=== PATIENT | male | born 1985 | race Caucasian/White ===

== ENCOUNTER 2017-08-07 17:07 | Emergency (ER) | payer OTHER ==
[~2017-08-07] VITALS: Ht 165.1 cm; Wt 72.6 kg
[2017-08-07 18:20] LABS: ABSOLUTE NEUTROPHILS 5.3 thou/uL (1.4-8.2); BASOPHILS 0.5 % (0.0-2.0); EOSINOPHILS 0.5 % (0.0-3.0); HEMATOCRIT 53.1 % (42.0-52.0); HEMOGLOBIN 17.6 gm/dL (14.0-18.0); LYMPHOCYTES 14.8 % (24.0-44.0); MCH 25.7 pg (26.0-34.0); MCHC 33.1 g/dL (28.0-37.0); MCV 77.6 fL (80.0-100.0); MONOCYTES 8.4 % (1.0-8.0); POLYS 75.8 % (36.0-66.0); RBC 6.84 mil/uL (4.50-6.00); RDW 14.3 % (10.5-14.5)
[2017-08-07 18:25] LABS: CALCIUM 9.2 mg/dL (8.5-10.1); CREATININE 1.3 mg/dL (0.7-1.3); POTASSIUM 3.9 mmol/L (3.5-5.1)
[2017-08-07 18:30] LABS: INR 1.2
[2017-08-07 18:32] LABS: ALBUMIN 3.8 g/dL (3.4-5.0); TOTAL BILIRUBIN 0.6 mg/dL (<0.1-1.0); TOTAL PROTEIN 8.4 g/dL (6.4-8.2)
[2017-08-07 18:42] LABS: LARGE PLATELETS OCCASIONAL
[2017-08-07 18:46] LABS: ANISOCYTOSIS 1+
[2017-08-07 19:00] LABS: PLATELET COUNT 118 thou/uL (150-400)
[2017-08-07 19:24] LABS: URINE BILIRUBIN NEGATIVE (Negative); URINE BLOOD NEGATIVE (Negative); URINE CLARITY CLEAR; URINE COLOR YELLOW; URINE GLUCOSE-RANDOM* NEGATIVE (Negative); URINE KETONES TRACE (Negative); URINE LEUKOCYTES-REFLEX NEGATIVE (Negative); URINE NITRITE-REFLEX NEGATIVE (Negative); URINE PROTEIN (DIPSTICK) 1+ (Negative); URINE SPECIFIC GRAVITY >= 1.030 (1.005-1.035); URINE UROBILINOGEN 0.2 E.U./dl (0.2-1.0)
[2017-08-07 19:31] LABS: BACTERIA-REFLEX None Seen /HPF (None Seen); CASTS None Seen /LPF (None Seen); CRYSTALS None Seen /LPF (None Seen); MUCUS >6 Heavy strn/LPF (None Seen); SQUAMOUS 0-3 Few /LPF (0-3); URINE RBC 0-2 Rare /HPF (0-2); URINE WBC-REFLEX 0-5 Rare /HPF (0-5)
[2017-08-07] MEDS ORDERED: ONDANSETRON HCL4 M2 PO (20:29)
[2017-08-07 20:49] VITALS: BP 130/77
== END 2017-08-07 21:02 | disposition still patient (30) ==
LOC: ER 17:07
PROVIDERS: Physician Assistant
DX: B34.9 Viral infection, unspecified (principal); M79.652 Pain in left thigh; M79.651 Pain in right thigh

== ENCOUNTER 2018-09-12 04:36 | Emergency (ER) | payer OTHER ==
[~2018-09-12] VITALS: Ht 162.6 cm; Wt 81.7 kg
[~2018-09-12 04:36] MED LIST: ONDANSETRON HCL4 M2 PO
[2018-09-12 05:57] VITALS: BP 133/78
--- NOTE | 2018-09-12 19:53 | EKG ---
[place] [place] [address] [place] [address] ELECTROCARDIOGRAM REPORT Name: OTILIO JEAN Room #: [facility]#: [id number] ������������������ Admission: 09/12/18 ������������������ Attend Phys: Discharge: 09/12/18 ������������������ Date of : 81 Report #: [id number] ����������������������������������������������������������������� [id number] THIS REPORT FOR: //name// [facility] ED Test Date: 2018-09-12 Test Time: 04:45:57 Pat Name: OTILIO CLIFFORD Department: Room: Gender: M Access Coordinator: LUKE : 1985 Requested By: Jessica Groves Order Number: [id number] MD: Sean Wolf Measurements Intervals [place] Rate: 57 P: 57 WI: 214 QRS: -10 QRSD: 89 T: 32 QT: 406 QTc: 396 Interpretive Statements Sinus rhythm Prolonged WI interval Probable left ventricular hypertrophy ST elev, probable normal early repol pattern No previous ECG available for comparison Electronically Signed On 09-12-2018 19:53:29 CDT by Sean Wolf [email or web address] ��������������������������������������������� <ELECTRONICALLY SIGNED> ���������������������������������������� By: Sean Wolf MD ��������������������������������������������� 09/12/181952 0445 Sean Wolf MD /EPI
== END 2018-09-12 06:05 | disposition home or self-care (01) ==
LOC: ER 04:36
DX: R13.10 Dysphagia, unspecified (principal)